=== PATIENT | male | born 1970 | race Caucasian/White ===

== ENCOUNTER 2022-10-22 14:25 | Emergency (ER) | payer BC, SELFPAY ==
[2022-10-22 14:30] VITALS: BP 160/100; PULSE 90; RESP 18; TEMP 36.7; O2SAT 99; BMI 23.4
--- NOTE | 2022-10-22 14:38 | CT_ITS ---
[address] [address] Patient Name: BRITNEY MACHADO MRN: [id number] date: 1970 Sex: M Assigned Patient Location: ER Current Patient Location: Accession/Order Number: [id number] Exam Date: 10/22/2022 14:45 Report Date: 10/22/2022 15:09 At the request of: FERN MYRICK Procedure: CT lumbar spine wo con EXAM: CT lumbar spine wo con; [id number] REASON FOR EXAM: lumbar radiculopathy COMPARISON: None. TECHNIQUE: Helical CT images of the lumbar spine were obtained without contrast. Multiplanar reformats generated at the scanner. Dose reduction technique used: Automated exposure control and/or adjustment of the mA and/or kV according to patient size and/or use of iterative reconstruction technique. FINDINGS: Note: Compared with contrast-enhanced CT exams, noncontrast images are less sensitive for detection of some types of vascular, solid organ, and soft tissue pathology. 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 For the purposes of this exam there are 4 nonrib-bearing lumbar-type vertebral bodies. Alignment: No traumatic malalignment. Non degenerative osseous findings: -No acute fracture. -No suspicious osseous lesion. Degenerative osseous changes: -No significant intervertebral disc height loss. -Mild/moderate osteophytosis from L1 through L4 with osteophytic lipping at T12/L1 and L4-S1. -No significant osseous neural foraminal or spinal canal narrowing. -Within the limitations of the CT exam, no large disc herniation demonstrated. Visualized paraspinous soft tissues: -No acute abnormality. -Calcified atherosclerosis of the abdominal aorta. CT/CT lumbar spine wo con IMPRESSION: 1. Mild lumbar spondylosis. 2. No significant disc herniation or osseous etiology for lumbar radiculopathy. 3. 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 Electronically authenticated by: LV FUNEZ Date: 10/22/2022 15:09
--- NOTE | 2022-10-22 14:38 | US_ITS ---
The [address] [address] Patient Name: BRITNEY MACHADO MRN: [id number] date: 1970 Sex: M Assigned Patient Location: ER Current Patient Location: ER Accession/Order Number: [id number] Exam Date: 10/22/2022 14:50 Report Date: 10/22/2022 15:23 At the request of: FERN MYRICK Procedure: US venous doppler LE RT ULTRASOUND OF RIGHT LOWER EXTREMITY VENOUS SYSTEMS WITH DUPLEX, 10/22/2022 2:50 PM EDT INDICATION: Right lower leg pain x3 days. COMPARISON: No prior right lower extremity ultrasound available for comparison at the time of this dictation. TECHNIQUE: Multi-planar real-time ultrasonography of the right lower extremity venous systems using grayscale imaging supplemented by color Doppler. Augmentation and compression maneuvers were utilized as needed. FINDINGS: The saphenofemoral junction, common femoral, profunda femoral, superficial femoral, and popliteal are fully compressible with anterograde flow. Respiratory variation and waveform response to augmentation within normal limits. The anterior tibial, posterior tibial, peroneal, greater saphenous and small saphenous veins are compressible. US/US venous doppler LE RT IMPRESSION: No evidence of deep vein thrombosis within the right lower extremity. Electronically authenticated by: MAMIE MEAD Date: 10/22/2022 15:23
--- NOTE | 2022-10-22 14:39 | ED_ITS ---
HPI - Extremity Injury (Lower) General Chief Complaint: Extremity Injury, Lower Stated Complaint: R LEG PAIN/NUMBNESS Time Seen by Provider: 10/22/22 14:38 Source: patient Mode of arrival: walk-in History of Present Illness HPI Narrative: patient is a pleasant 52-year-old male who presents to the emergency department for one month history of pain to the right anterior tibia with a several day history of increasing right calf pain. He reports some low back pain but states for the last month when he is up and walking he has significant pain in the right anterior hinojosa. In the last several days he has noticed sharp pain in the right calf and was concerned for possible blood clot, he has not had any shortness of breath, chest pain. No falls or injuries. The leg has not been swollen or red. No medications taken prior to arrival. Related Data Previous Rx's Medication Instructions Recorded methocarbamol 750 mg tablet 750 mg PO TID PRN pain #20 tabs 10/22/22 methylprednisolone 4 mg tablets in See Rx Instructions .Route 10/22/22 a dose pack (Medrol (Jamal)) .COMPLEX #21 ea Allergies Allergy/AdvReac Type Severity Reaction Status Date / Time No Known Drug Allergies Allergy Verified 10/22/22 14:30 Review of Systems ROS Constitutional Denies: fever or chills Cardiovascular Denies: chest pain Respiratory Denies: shortness of breath or cough Gastrointestinal Denies: nausea or vomiting Musculoskeletal Reports: back pain and extremity pain Integumentary/Breast Denies: rash Hematologic/Lymphatic Denies: easy bruising Exam Narrative Exam Narrative: Gen.: Awake, alert, in no distress Head: Normocephalic, atraumatic ENT: Moist mucous membranes Respiratory: No respiratory distress Extremities: Moves extremities equally, no injuries noted; no swelling or redn ess noted of the right lower extremity. Varicose veins noted to the bilateral lower extremities. Normal dorsiflexion and plantarflexion of the bilateral lower extremities with no decrease in sensation to the medial thighs. Normal hip flexion bilaterally. Psych: Normal mood and affect Neuro: No focal neuro deficit Skin: Warm, dry, intact Constitutional Vital Signs, click to edit/add: Last Vital Signs Temp 98.1 F 10/22/22 14:30 Pulse 90 10/22/22 14:30 Resp 18 10/22/22 14:30 BP 160/100 H 10/22/22 14:30 Pulse Ox 99 10/22/22 14:30 O2 Del Method Room Air 10/22/22 14:30 Course Vital Signs Vital signs: Vital Signs Temperature 98.1 F 10/22/22 14:30 Pulse Rate 90 10/22/22 14:30 Respiratory Rate 18 10/22/22 14:30 Blood Pressure 160/100 H 10/22/22 14:30 Pulse Oximetry 99 10/22/22 14:30 Oxygen Delivery Method Room Air 10/22/22 14:30 Temperature 98.1 F 10/22/22 14:30 Pulse Rate 90 10/22/22 14:30 Respiratory Rate 18 10/22/22 14:30 Blood Pressure 160/100 H 10/22/22 14:30 Pulse Oximetry 99 10/22/22 14:30 Oxygen Delivery Method Room Air 10/22/22 14:30 MDM - Extremity Injury (Lower) MDM Narrative Medical decision making narrative: patient with no focal neuro deficits, no exam findings concerning for cellulitis. He had a CT of the lumbar spine which shows arthritic changes but no acute abnormalities and an ultrasound of the right lower extremity with no evidence of deep vein thrombosis. Patient will be treated for right-sided sciatica as a presumptive diagnosis and referred back to his PCP for further evaluation and treatment. Rest, ice, gentle stretching. Medical Records Attestation: I reviewed the patient's medical records. Imaging Data CT lumbar spine: Attestation: I have reviewed the pertinent imaging results. Radiologist's impression: Procedure: CT lumbar spine wo con EXAM: CT lumbar spine wo con; [id number] REASON FOR EXAM: lumbar radiculopathy COMPARISON: None. TECHNIQUE: Helical CT images of the lumbar spine were obtained without contrast. Multiplanar reformats generated at the scanner. Dose reduction technique used: Automated exposure control and/or adjustment of the mA and/or kV according to patient size and/or use of iterative reconstruction technique. FINDINGS: Note: Compared with contrast-enhanced CT exams, noncontrast images are less sensitive for detection of some types of vascular, solid organ, and soft tissue pathology. 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 For the purposes of this exam there are 4 nonrib-bearing lumbar-type vertebral bodies. Alignment: No traumatic malalignment. Non degenerative osseous findings: -No acute fracture. -No suspicious osseous lesion. Degenerative osseous changes: -No significant intervertebral disc height loss. -Mild/moderate osteophytosis from L1 through L4 with osteophytic lipping at T12/L1 and L4-S1. -No significant osseous neural foraminal or spinal canal narrowing. -Within the limitations of the CT exam, no large disc herniation demonstrated. Visualized paraspinous soft tissues: -No acute abnormality. -Calcified atherosclerosis of the abdominal aorta. IMPRESSION: 1. Mild lumbar spondylosis. 2. No significant disc herniation or osseous etiology for lumbar radiculopathy. 3. 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 Electronically authenticated by: LV FUNEZ Date: 10/22/2022 15:09 Venous US: Attestation: I have reviewed the pertinent imaging results. Radiologist's impression: Procedure: US venous doppler LE RT ULTRASOUND OF RIGHT LOWER EXTREMITY VENOUS SYSTEMS WITH DUPLEX, 10/22/2022 2:50 PM EDT INDICATION: Right lower leg pain x3 days. COMPARISON: No prior right lower extremity ultrasound available for comparison at the time of this dictation. TECHNIQUE: Multi-planar real-time ultrasonography of the right lower extremity venous systems using grayscale imaging supplemented by color Doppler. Augmentation and compression maneuvers were utilized as needed. FINDINGS: The saphenofemoral junction, common femoral, profunda femoral, superficial femoral, and popliteal are fully compressible with anterograde flow. Respiratory variation and waveform response to augmentation within normal limits. The anterior tibial, posterior tibial, peroneal, greater saphenous and small saphenous veins are compressible. IMPRESSION: No evidence of deep vein thrombosis within the right lower extremity. Electronically authenticated by: MAMIE MEAD Date: 10/22/2022 15:23 Discharge Plan Discharge Chief Complaint: Extremity Injury, Lower Clinical Impression: Right sided sciatica, Right leg pain Patient Disposition: Home, Self-Care Time of Disposition Decision: 15:50 Condition: Good Prescriptions / Home Meds: New methocarbamol 750 mg tablet 750 mg PO TID PRN (Reason: pain) Qty: 20 0RF methylprednisolone [Medrol (Jamal)] 4 mg tablets,dose pack See Rx Instructions .ROUTE .COMPLEX Qty: 21 0RF Rx Instructions: Taper as directed Instructions: Sciatica (ED), Leg Pain (ED) Stand Alone Forms: Portal Instructions Referrals: Anitra LOPEZ [Primary Care Provider] - 1 week
== END 2022-10-22 15:56 | disposition home or self-care (01) ==
PROVIDERS: Emergency Provider Emergency Medicine; PCP Family Medicine
DX: M54.41 Lumbago with sciatica, right side (principal); M79.604 Pain in right leg; M47.816 Spondylosis without myelopathy or radiculopathy, lumbar region
CPT/HCPCS: 72131; 93971; 99284

== ENCOUNTER 2024-07-10 19:40 | Emergency (ER) | payer BC, SELFPAY ==
[2024-07-10 19:46] VITALS: BP 179/93; PULSE 89; TEMP 36.6; O2SAT 96; BMI 21.4
--- NOTE | 2024-07-10 19:54 | ED.EXTPRO1 ---
HPI - Extremity Problem General Chief complaint: Extremity Problem, Nontraumatic Stated complaint: Hip Pain Time Seen by Provider: 07/10/24 19:46 Source: patient Mode of arrival: walk-in Limitations: no limitations History of Present Illness HPI Narrative: presents complaining of pain right hip area. Describes working out in his hard and his right leg giving out. Seen by chiropractor and no improvement. Describes sensation of ice of the right thigh. No leg weakness or loss of control of bowel or bladder. Able to walk ok but the leg can give out when he experiences acute pain. No fever or recent injury Related Data Home Medications ?Medication ?Instructions ?Recorded ?Confirmed No Known Home Medications 07/10/24 07/10/24 Allergies Allergy/AdvReac Type Severity Reaction Status Date / Time No Known Drug Allergies Allergy Verified 07/10/24 19:53 Review of Systems ROS Status of ROS 10 or more systems reviewed and unremarkable except as noted in history and below PFSH PFSH Social History Little interest or pleasure in doing things: not at all Feeling down, depressed, or hopeless: not at all Exam Constitutional Vital Signs, click to edit/add: Last Vital Signs Temp 97.8 F 07/10/24 19:46 Pulse 89 07/10/24 19:46 Resp 18 07/10/24 19:46 BP 179/93 H 07/10/24 19:46 Pulse Ox 96 07/10/24 19:46 O2 Del Method Room Air 07/10/24 19:46 Common normals: no apparent distress, average body habitus, oriented x3, no limitations, healthy appearing and alert [facility] Common normals: normocephalic and head/scalp atraumatic Eye Common normals: PERRL and EOMs intact bilaterally Respiratory Common normals: normal respiratory effort, no retractions and no use of accessory muscles Cardio Common normals: regular rate, regular rhythm, S1 normal heart sound and S2 normal heart sound GI Common normals: Normal to inspection, nondistended, normoactive bowel sounds present, soft to palpation and non-tender Back & Pelvis Sacroiliac joints: SI joint(s) abnormal (right SI joint tender) Other: lower L-spine tender Neuro Common normals: oriented x3, CN's II-XII intact bilaterally, moves all extremities and no focal motor deficits Psych Appearance: grossly normal Course Vital Signs Vital signs: Vital Signs Temperature 97.8 F 07/10/24 19:46 Pulse Rate 89 07/10/24 19:46 Respiratory Rate 18 07/10/24 19:46 Blood Pressure 179/93 H 07/10/24 19:46 Pulse Oximetry 96 07/10/24 19:46 Oxygen Delivery Method Room Air 07/10/24 19:46 Temperature 97.8 F 07/10/24 19:46 Pulse Rate 89 07/10/24 19:46 Respiratory Rate 18 07/10/24 19:46 Blood Pressure 179/93 H 07/10/24 19:46 Pulse Oximetry 96 07/10/24 19:46 Oxygen Delivery Method Room Air 07/10/24 19:46 MDM - Extremity (Nontraumatic) MDM Narrative Medical decision making narrative: presents complaining of pain right hip and right thigh. Describes sensation of ice on the right thigh. No weakness. But legs gives out with sharp pain. no fever or injury. exam with L5 and right SI tenderness. xray with DJD right hip and CT with broad base disc bulge L5-S1. patient informed of diagnosis of sciatica as cause of symptoms. Given dose of solumedrol and discharged home with prednisone and advised to follow up with the family doctor Discharge Plan Discharge Chief Complaint: Extremity Problem, Nontraumatic Clinical Impression: Right sided sciatica Patient Disposition: Home, Self-Care Prescriptions / Home Meds: No Action No Known Home Medications Print Language: Congolese Instructions: Sciatica (ED) Additional Instructions: follow up with Dr Salmeron this upcoming week for recheck Referrals: Anitra LOPEZ [Primary Care Provider, Family Practice] - 1 week
[2024-07-10] MEDS: METHYLPREDNISOLONE SOD SUCC PF 125 MG/2 ML VIAL IM (22:05)
== END 2024-07-10 22:16 | disposition home or self-care (01) ==
PROVIDERS: Emergency Provider Internal Medicine; PCP Family Medicine
DX: M54.31 Sciatica, right side (principal); M16.11 Unilateral primary osteoarthritis, right hip; M51.379 Other intervertebral disc degeneration, lumbosacral region without mention of lumbar back pain or lower extremity pain
CPT/HCPCS: 72131; 73502; 96372; 99285; J2919

== ENCOUNTER 2024-07-26 07:21 | Outpatient (OUT) | payer BC, SELFPAY ==
--- OUTSIDE RECORDS SUMMARY | 2024-07-19 05:30 | XMS_ITS ---
Author Organization [facility] in [place] Address [address] [place] [address] Care Team Providers Care Machine Umbrella Tipper Name Role Phone Osmar Becerril Primary Care Provider [phone] Allergies No Known Allergies REASON FOR VISIT Establish, Arthritis, Right Hip and leg Pain with numbness Medications Medication SIG (Take, Route, Frequency, Duration) Notes Start Date End Date Status Diclofenac Sodium 75 MG 1 tablet as need ed Orally Twice a day for 30 days 07/19/2024 Active Cefdinir 300 MG 2 capsule Orally onc e a day for 10 days 07/19/2024 Active Doxycycline Monohydrate 100 MG 1 capsule Orally bid for 10 days 07/19/2024 Active Social History Tobacco Use: Social History Observation Description Date Details (start date - stop date) Current Smoker NA - NA Tobacco Control (Standard) Question Answer Notes Tobacco use: Current smoker How often do you smoke cigarettes? Every day How many cigarettes a day do you smoke? 31 or mo re How soon after you wake up do you smoke your fir st cigarette? Within 5 minutes AUDIT-C (Standard) Question Answer Notes Did you have a drink contain ing alcohol in the past year? Yes How often did you have a dri nk containing alcohol in the past year? Never (0 point) How many drinks did you have on a typical day when you were drinking in the past year? 1 or 2 drinks (0 point) How often did you have six o r more drinks on one occasion in the past year? 4 or more times a week (4 points) Points 4 Interpretation Positive Problems Problem Type SNOMED Code ICD Code Onset Dates Problem Status W/U Status Risk Notes Problem Well adult (512964846) Well adult (Z00.00) Active confirmed Problem Myocardial infarction (93284005) Myocardial infarction (I21.3) Active confirmed Problem Hypertension (93304549) Hypertension (I10) Active confirmed Vital Signs Weight 179.0 lbs 07/19/2024 Height 69.5 in 07/19/2024 Blood pressure systolic 162 mm Hg 07/20/19 25 Blood pressure diastolic 92 mm Hg 025 BMI 26.05 kg/m2 07/19/2024 Encounters Encounter Location Date Provider Diagnosis [facility] [address] [place] [address] 07/19/2024 Osmar Hoy Hypertension I10 ; Myocardial infarction I21.3 and Well adult Z00.00 Assessments Encounter Date Diagnosis (ICD Code) Assessment Notes Treatment Notes Treatment Clinical Notes Section Notes 07/19/2024 Hypertension (ICD-10 - I10) 07/19/2024 Myocardial infarction (ICD-10 - I21.3) 07/19/2024 Well adult (ICD-10 - Z00.00) Plan Of Treatment Medication Medication Name Sig Start Date Stop Date Notes Diclofenac Sodium 75 MG 1 tablet as need ed Orally Twice a day for 30 days 07/19/2024 Cefdinir 300 MG 2 capsule Orally onc e a day for 10 days 07/19/2024 Doxycycline Monohydrate 100 MG 1 capsule Orally bid for 10 days 07/19/2024 Pending Test Test Name Order Date HEMOGLOBIN A1C (GLYCO) 07/19/2024 LIPID PANEL (CHOL/TRIG/HDL/LDL) 07/20/19 25 STOOL OCCULT BLOOD 07/19/2024 THYROID PANEL (T4/TSH/FREE T3) PSA, SCREENING 07/19/2024 CMP (COMP MET PORTILLO) w/eGFR CKD-EPI 2024 CBC WITH DIFF 07/19/2024 Progress Notes * Carlos Eduardo HERNANDEZDOB:[birth year] (54 yo M)Acc No.[id number]:07/19/2024 New Patient Patient: Carlos Eduardo RAPP Provider: Zoe Becerril ([facility])MD :1970 A ge:54 Y S ex:Male Date:07/19/2024 Address:[address] [facility] Check In:09:09 AM ESTCheck O ut:10:16 AM EST Subjective: * Chief Complaints: * E stablishArthritisRight Hip and leg Pain with numbness * HPI: D epression Screening: PHQ-2 (2015 Edition) L ittle interest or pleasure in doing things??More than half the days F eeling down, depressed, or hopeless? N ot at all T otal Score 2 disu cssed arthritis - more in R hip - in joint -0 no groin swelling - left ant thigh wtih tingling - was going all wary to calf feels like getting some leg weakness - that is better after prednisone BP up a bit CAD - 5 year ago. D epression Screening: PHQ-9 L ittle interest or pleasure in doing things?More than half the days F eeling down, depressed, or hopeless N ot at all T rouble falling or staying asleep, or sleeping too much N ot at all F eeling tired or having little energy S everal days P oor appetite or overeating N ot at all F eeling bad about yourself or that you are a failure, or have let yourself or your family down N ot at all T rouble concentrating on things, such as reading the newspaper or watching television N ot at all M oving or speaking so slowly that other people could have noticed; or the opposite, being so fidgety or restless that you have been moving around a lot more than usual N ot at all T houghts that you would be better off or of hurting yourself in some way N ot at all T otal Score 3 I nterpretation M inimal Depression * ROS: E ENT: hearing changes d enies. v isual changes d enies.?non-healing mouth sores d enies. s wollen glands or neck lumps d enies. h oarseness d enies. s ore throat d enies. d ifficulty swallowing d enies. n ose bleeds d enies. n awilda congestion d enies. e ar ache d enies. e ar discharge?denies. r inging in ears d enies. l ight sensitivity d enies. e ye pain d enies. b lurring d enies. e ye irritation d enies. d ouble vision d enies.?vision loss d enies. G eneral/Constitutional: Sweats: D enies. F atigue d enies. S leep problems d enies. A norexia d enies. M alaise d enies. W eight loss d enies.?Fatigue or Weakness d enies. F ever or Chills d enies. C ardiovascular: Shortness of Breath w/lying flat d enies. L ightheadedness/dizziness d enies. C hest tightness/ heavy pressure d enies. S welling of legs, ankles, or feet d enies. W aking up with shortness of breath d enies. C hest pain denies. P alpitations d enies. W eight gain d enies. R espiratory: Chronic or frequent cough d enies. C oughing up blood?denies. D ifficulty breathing d enies. P roductive cough d enies. S noring?denies. S hortness of breath that awakens from sleep (PND) d enies. C hest pain d enies. S putum production d enies. W heezing d enies. M usculoskeletal: Joint pain d enies. J oint Fluid d enies. B ack pain d enies. K nee pain d enies. N baylee pain d enies. J oint Stiffness d enies. M uscle cramps d enies. W eakness of muscles d enies. A rthritis d enies. M uscle aches d enies. P ain in shoulder(s) d enies. S wollen joints d enies. * Active Problem List I10 Hypertension Modified On:07/19/2024W/U Status:confirmed I21.3 Myocardial infarctio n Modified On:07/19/2024/U Status:confirmed Z00.00 Well adult Modified On:07/19/2024/U Status:confirmed * Medical History: * Surgical History: A ngioplasty Elbow Surgery- Right * Hospitalization/Major Diagno stic Procedure: * Family History: F ather: alive. M other: alive. D aughter(s): alive. 2 sister(s) . . * Social History: T obacco Use: T obacco Control (Standard) T obacco use: C urrent smoker H ow often do you smoke cigarettes? E very day H ow many cigarettes a day do you smoke? 3 1 or more H ow soon after you wake up do you smoke your first cigarette? W ithin 5 minutes D rug/Alcohol: A CORINA-C (Standard) D id you have a drink containing alcohol in the past year? Y es H ow often did you have a drink containing alcohol in the past year? N ever (0 point) H ow many drinks did you have on a typical day when you were drinking in the past year? 1 or 2 drinks (0 point) H ow often did you have six or more drinks on one occasion in the past year? 4 or more times a week (4 points) P oints 4 I nterpretation P ositive * Medications: N one * Allergies: N .K.D.A.no[Allergies Verified] Objective: * Vitals: W t:179.0lbs, Ht: 69.5 in, BP:162/92mm Hg, BMI:26.05Index, Ht-cm: 176.53 cm, Wt- k.19 kg. * Examination: P hysical Exam: GENERAL: w ell developed, well nourished, in no acute distress. HEAD: n ormocephalic/atraumatic. EYES: p upils equal, round and reactive to light, conjunctivae and sclerae normal. EARS: n o deformity or lesion of external ear, canals and TM appear normal bilaterally, TM's intact, not inflamed with normal light reflex, hearing grossly normal to conversational speech. NOSE: n o deformity, discharge, inflammation, or lesions.? MOUTH: m ucous membranes moist, normal oropharynx and posterior pharynx without lesions or exudates, tongue normal, dentition normal. NECK: n baylee supple, no masses or palpable cervical nodes, trachea midline, thyroid without nodules, masses, tenderness, or enlargement. CHEST: n o chest wall deformity, no chest wall tenderness.? LUNGS: n ormal respiratory effort and clear to auscultation, no wheezes, rales, or rhonchi, good air exchange. CARDIO: r egular rate and rhythm, normal S1 and S2, nor murmur, rub, or gallop. PULSES: n ormal capillary refill. ABDOMEN: s oft, non-distended, non-tender, no masses. MUSCULOSKELETAL: n o deformity or scoliosis noted, normal range of motion, joints normal, no erythema, edema, effusion, or ecchymosis. EXTREMITY: n o clubbing, cyanosis, edema, or deformity with normal ROM in both upper and lower bilateral extremities. NEUROLOGIC: P oorr rom in back due to pain + SLR on monroe R 3/5 strength with diminished patellar reflex. SKIN: n o rashes, ulcerations, or suspicious lesions. LYMPH NODES: n o cervical adenopathy, nodes normal. MENTAL STATUS: a lert and oriented x3, normal mood and affect. Assessment: * Assessment: 1. H ypertension - I10 (Primary) 2 . M yocardial infarction - I21.3 ? 3 . W ell adult - Z00.00 Plan: * Treatment: 2. W ell adult L AB: HEMOGLOBIN A1C (GLYCO) L AB: LIPID PANEL (CHOL/TRIG/HDL/LDL) L AB: STOOL OCCULT BLOOD L AB: THYROID PANEL (T4/TSH/FREE T3) L AB: PSA, SCREENING L AB: CMP (COMP MET PORTILLO) w/eGFR CKD-EPI L AB: CBC WITH DIFF * Procedure Codes: * * Sign off status: Completed Visit Status: C HK (Check Out) true * Provider: Zoe Becerril ([facility])MD Date: 0 07/19/2024 Generated for Rose Marie hodge/Renata/eTransmitting on: 0 07/26/2024 07:22 AM EDT History and Physical Notes * HPI (History of Present Illness) Category Sub-Category Detail Notes Category Not es Depression Screening PHQ-9 Little inte rest or pleasure in doing things: More than half the days Feeling down, depressed, or hopeless: No t at all Trouble falling or staying asleep, or sl eeping too much: Not at all Feeling tired or having little energy: S everal days Poor appetite or overeating: Not at all Feeling bad about yourself o r that you are a failure, or have let yourself or your family down: Not at all Trouble concentrating on thi ngs, such as reading the newspaper or watching television: Not at all Moving or speaking so slowly that other people could have noticed; or the opposite, being so fidgety or restless that you have been moving around a lot more than usual: Not at all Thoughts that you would be b augusto off or of hurting yourself in some way: Not at all Total Score: 3 Interpretation: Minimal Depression Depression Screening PHQ-2 (2015 Edition) Little interest or pleasure in doing things?: More than half the days disu cssed arthritis - more in R hip - in joint -0 no groin swelling - left ant thigh wtih tingling - was going all wary to calf feels like getting some leg weakness - that is better after prednisone BP up a bit CAD - 5 year ago Feeling down, depressed, or hopeless?: N ot at all Total Score: 2 Examination Category Sub-Category Detail Notes Category Not es Physical Exam GENERAL: well developed, well nourished, in no acute distress HEAD: normocephalic/atraum atic EYES: pupils equal, round and reactive to light, conjunctivae and sclerae normal EARS: no deformity or lesi on of external ear, canals and TM appear normal bilaterally, TM's intact, not inflamed with normal light reflex, hearing grossly normal to conversational speech NOSE: no deformity, discha rge, inflammation, or lesions MOUTH: mucous membranes clarence st, normal oropharynx and posterior pharynx without lesions or exudates, tongue normal, dentition normal NECK: neck supple, no mass es or palpable cervical nodes, trachea midline, thyroid without nodules, masses, tenderness, or enlargement CHEST: no chest wall deform ity, no chest wall tenderness LUNGS: normal respiratory e ffort and clear to auscultation, no wheezes, rales, or rhonchi, good air exchange CARDIO: regular rate and rhy thm, normal S1 and S2, nor murmur, rub, or gallop PULSES: normal capillary ref ill ABDOMEN: soft, non-distended, non-tender, no masses RECTAL: MUSCULOSKELETAL: no deformity or scol iosis noted, normal range of motion, joints normal, no erythema, edema, effusion, or ecchymosis EXTREMITY: no clubbing, cyanosi s, edema, or deformity with normal ROM in both upper and lower bilateral extremities NEUROLOGIC: Poorr rom in back du e to pain + SLR on monroe R 3/5 strength with diminished patellar reflex SKIN: no rashes, ulceratio ns, or suspicious lesions LYMPH NODES: no cervical adenopat hy, nodes normal MENTAL STATUS: alert and oriented x 3, normal mood and affect
--- OUTSIDE RECORDS SUMMARY | 2024-07-26 07:23 | XMS_ITS | Clinical Summary ---
Author Organization [facility] Address [address] [facility] [place] [address] Phone Care Team Providers Care Semiconductor Wafers Saw Operator Name Role Phone Unavailable Primary Care Provider Unavailabl e Social History Tobacco Use Types Packs/Day Years Used Date Smoking Tobacco: Never Assessed Sex and Gender Information Value Date Recorded Sex Assigned at Not on file Legal Sex Male 3:34 PM EST Gender Identity Not on file Sexual Orientation Not on file Plan of Treatment Not on file
--- OUTSIDE RECORDS SUMMARY | 2024-07-26 07:23 | XMS_ITS | Encounter Summary ---
Author Organization [facility] Address [address] [place] [address] Care Team Providers Care Mortgage Or Loan Underwriter Name Role Phone Salvador Cruz DO Primary Care Provider [phone] Encounter Details Date Type Department Care Team (Late st Contact Info) Description 10/22/2022 Orders Only [facility] [address] [facility] [address] [facility] [address] [place] [address] A, Unknown Practice [address] [place], [place] [address] Social History Tobacco Use Types Packs/Day Years Used Date Smoking Tobacco: Never Assessed Sex and Gender Information Value Date Recorded Sex Assigned at Not on file Legal Sex Male 6:34 PM EDT Gender Identity Not on file Sexual Orientation Not on file documented as of this encounter Plan of Treatment Not on file documented as of this encounter Procedures Procedure Name Priority Date/Time Associated Diagnosis Comments CT LUMBAR SPINE W WO CONTRAST Routine 10/22/2022 3:31 PM EDT documented in this encounter Results * CT LUMBAR SPINE W WO CONTRAST (10/22/2022 3:31 PM EDT) Anatomical Region Laterality Modality Radiographic Kyra ging us Unknown Practice A IMG XR PROCEDURES Final Resul t documented in this encounter Visit Diagnoses Not on filedocumented in this encounter Care Teams Mortgage Or Loan Underwriter Relationship Specialty Start Date End Date Salvador Cruz DO [address] [place] [id number] PCP - General Family Medicine 07/01/22 documented as of this encounter
--- OUTSIDE RECORDS SUMMARY | 2024-07-26 07:23 | XMS_ITS | Patient Health Record ---
Author Organization [facility] in [place] Address [address] [place] [address] Care Team Providers Care Facility Manager Name Role Phone Osmar Becerril Primary Care Provider [phone] Allergies No Known Allergies Reason For Referral No Information Medications Medication SIG (Take, Route, Frequency, Duration) [...] Problem Status W/U Status Risk Notes Problem Hypertension (I10) Active confirmed Problem Well adult (619839369) Well adult (Z00.00) Active confirmed Problem Myocardial infarction (73784887) Myocardial infarction (I21.3) Active confirmed Vital Signs Blood pressure diastolic 92 mm Hg 07/19/2024 Height 69.5 in 07/19/2024 Blood pressure systolic 162 mm Hg 07/19/2024 Weight 179.0 lbs 07/19/2024 BMI 26.05 kg/m2 07/19/2024 Encounters Encounter Location Date Provider Diagnosis [facility] [address] [place] [address] 07/19/2024 Osmar Hoy Hypertension I10 ; Myocardial infarction I21.3 and Well adult Z00.00 [facility] [address] [place] [address] 07/19/2024 Osmar Hoy Assessments Encounter Date Diagnosis (ICD Code) Assessment Notes Treatment Notes Treatment Clinical Notes Section Notes 07/19/2024 Hypertension (ICD-10 - I10) 07/19/2024 Myocardial infarction (ICD-10 - I21.3) 07/19/2024 Well adult (ICD-10 - Z00.00) Plan Of Treatment Pending Test Test Name Order Date HEMOGLOBIN A1C (GLYCO) 07/19/2024 LIPID PANEL (CHOL/TRIG/HDL/LDL) 07/20/19 STOOL OCCULT BLOOD 07/19/2024 THYROID PANEL (T4/TSH/FREE T3) PSA, SCREENING 07/19/2024 CMP (COMP MET PORTILLO) w/eGFR CKD-EPI 2024 CBC WITH DIFF 07/19/2024 Insurance Providers Payer Name Payer Address Payer Phone Subscriber Number Group Number Insured Name Patient Relationship to Insured Coverage Start Date Coverage End Date [employer] [address] [place] [address] [id number] Carlos Eduardo Hernandez Self - patient is the insured Medical (General) History Medical History History ICD Code Hypertension I10 Myocardial infarction I21.3 Surgical History Surgery Date(Month/Year) Elbow Surgery- Right Angioplasty
--- OUTSIDE RECORDS SUMMARY | 2024-07-26 07:23 | XMS_ITS | Clinical Summary ---
Author Organization [facility] Address [address] [place] [address] Care Team Providers Care Division Road Supervisor Name Role Phone Salvador Cruz DO Primary Care Provider [phone] Social History Tobacco Use Types Packs/Day Years Used Date Smoking Tobacco: Never Assessed Sex and Gender Information Value Date Recorded Sex Assigned at Not on file Legal Sex Male 6:34 PM EDT Gender Identity Not on file Sexual Orientation Not on file Last Filed Vital Signs Vital Sign Reading Time Taken Comments Blood Pressure 114/64 03/08/2018 12:00 PM EST Pulse - - Temperature - - Respiratory Rate - - Oxygen Saturation - - Inhaled Oxygen Concentration - - Weight 70.3 kg (155 lb) 03/08/2018 12:00 PM EST Height 22.9 cm (9 ) 03/08/2018 12:00 PM EST Body Mass Index 1345.39 03/08/2018 12:00 PM EST Plan of Treatment Not on file Care Teams Division Road Supervisor Relationship Specialty Start Date End Date Salvador Cruz DO [address] [facility] [address] [address] PCP - General Family Medicine 07/01/22
[2024-07-26 07:34] LABS: Basophils Absolute Auto 0.1 10^3/uL (0.0-0.1); Basophils Percent Auto 0.9 % (0.2-2.0); Eosinophils Absolute Auto 0.2 10^3/uL (0.0-0.7); Eosinophils Percent Auto 1.8 % (0.9-7.0); Hematocrit 48.3 % (42.0-54.0); Hemoglobin 16.4 g/dL (14.0-18.0); Immature Granulocytes Abs Auto 0.05 10^3/uL (0.00-0.03); Immature Granulocytes Pct Auto 0.5 % (0.0-0.5); Lymphocytes Absolute Auto 2.6 10^3/uL (1.2-3.8); Lymphocytes Percent Auto 25.2 % (20.5-60.0); Mean Corpuscular Hemoglobin 31.6 pg (25.9-34.0); Mean Corpuscular Volume 93.1 fL (80.0-94.0); Mean Platelet Volume 9.4 fL (9.5-13.5); Monocytes Percent Auto 9.6 % (1.7-12.0); Neutrophils Absolute Auto 6.4 10^3/uL (1.4-6.5); Platelet Count 230 10^3/uL (150-450); Red Blood Count 5.19 10^6/uL (4.70-6.10); Red Cell Distribution Width 13.3 % (11.0-15.0); White Blood Count 10.3 10^3/uL (4.0-11.0)
[2024-07-26 08:27] LABS: Alanine Aminotransferase 30 U/L (16-63); Albumin Globulin Ratio 1.1; Albumin Level 3.7 g/dL (3.4-5.0); Alkaline Phosphatase 77 U/L (46-116); Anion Gap 13.4; Aspartate Amino Transferase 21 U/L (15-37); Bilirubin Total 0.5 mg/dL (0.2-1.0); Calcium 8.9 mg/dL (8.5-10.1); Chloride 104 mmol/L (98-107); Chol HDL Ratio 3.8; Cholesterol 184 mg/dL (<=200); Estimated GFR (African America >60 (>=60 mL/min/1.73m^2); Estimated GFR (Non-African Ame >60 (>=60 mL/min/1.73m^2); Free T3 2.28 pg/mL (2.18-3.98); Globulin 3.5 g/dL; Glucose 92 mg/dL (74-106); HDL Cholesterol 49 mg/dL (40-60); Potassium 4.4 mmol/L (3.5-5.1); Sodium 141 mmol/L (136-145); Total Protein 7.2 g/dL (6.4-8.2); Triglycerides 152 mg/dL (<=150); VLDL CHOLESTEROL 30.4 mg/dL
[2024-07-26 08:31] LABS: Prostate Specific Antigen Scrn 1.61 ng/mL (<=4.00)
[2024-07-26 10:38] LABS: Estimated Average Glucose 117 mg/dL; Glycohemoglobin A1C 5.7 % (4.5-6.2)
== END 2024-07-26 07:22 | disposition home or self-care (01) ==
LOC: LAB 07:21
PROVIDERS: PCP Family Medicine; Visit Provider Family Medicine
DX: Z00.00 Encounter for general adult medical examination without abnormal findings (principal); Z12.5 Encounter for screening for malignant neoplasm of prostate
CPT/HCPCS: 36415; 80053; 80061; 83036; 84436; 84443; 84481; 85025; G0103